=== PATIENT | female | born 1970 | race Caucasian/White ===

== ENCOUNTER 2022-03-17 12:29 | Emergency (ER) | payer OTHER ==
[2022-03-17 13:00] VITALS: BP 153/102; PULSE 82; TEMP 97.5; BMI 29.9
[2022-03-17] MEDS ORDERED: KETOROLAC TROMETHAMINE 30 MG/1 ML VIAL IM ONE (14:06)
[2022-03-17] MEDS ORDERED: KETOROLAC TROMETHAMINE 30 MG/1 ML VIAL ONE (14:14)
== END 2022-03-17 14:32 | disposition home or self-care (01) ==
LOC: JERFT 12:29
PROC: 3E0233Z Introduction of Anti-inflammatory into Muscle, Percutaneous Approach (ICD-10-PCS; principal; 2022-03-17)
DX: H66.92 Otitis media, unspecified, left ear (principal)
CPT/HCPCS: 93005; 93010; 99283-25

== ENCOUNTER 2024-08-31 12:54 | Emergency (ER) | payer OTHER ==
[2024-08-31 13:14] VITALS: BP 147/92; PULSE 86; RESP 16; BMI 27.4
[2024-08-31] MEDS ORDERED: predniSONE 10 MG TABLET (UD) ONE (13:44)
[2024-08-31] MEDS ORDERED: predniSONE 20 MG TABLET (UD) ONE (13:44)
[2024-08-31] MEDS ORDERED: FAMOTIDINE 10 MG TABLET ONE (13:44)
[2024-08-31] MEDS: FAMOTIDINE 10 MG TABLET PO ONE (13:49)
[2024-08-31] MEDS: predniSONE 20 MG TABLET (UD) PO ONE (13:49)
== END 2024-08-31 16:20 | disposition home or self-care (01) ==
LOC: JER 12:54
DX: T78.40XA Allergy, unspecified, initial encounter (principal); R13.10 Dysphagia, unspecified; R09.89 Other specified symptoms and signs involving the circulatory and respiratory systems; Z20.822 Contact with and (suspected) exposure to COVID-19
CPT/HCPCS: 0241U-QW; 87651; 99283-25